=== PATIENT | male | born 1990 | race African-American/Black ===

== ENCOUNTER 2016-04-14 02:33 | Emergency (ER) | payer OTHER ==
[2016-04-14] MEDS ORDERED: ZOFRAN ONE (03:07)
[2016-04-14] MEDS ORDERED: TORADOL ONE (03:07)
[2016-04-14] MEDS ORDERED: NACL 0.9% 1000 ML 1,000 ML ONE (03:08)
[2016-04-14] MEDS ORDERED: ZOFRAN IV ONE (03:13)
[2016-04-14] MEDS ORDERED: NACL 0.9% 1000 ML 1,000 ML IV ONE (03:13)
[2016-04-14] MEDS ORDERED: TORADOL IV ONE (03:13)
[2016-04-14 07:39] LABS: Bilirubin,Urine NEG (Negative); Blood,Urine MOD (Negative); Ketones,Urine NEG (Negative); Leukocyte Esterase,Urine NEG (Negative); Mucus,Urine FEW /HPF; Nitrite,Urine NEG (Negative); Protein,Urine <15 mg/dL mg/dL (Negative); Urobilinogen,Urine < 2.0 mg/dL (<2.0)
--- NOTE | 2016-04-14 07:43 | Emergency Department Report ---
ED Abdominal Pain HPI - General Chief Complaint: Abdominal Pain Stated Complaint: LOWER LF BACK PAIN POSS KIDNEY STONE Time Seen by Provider: 04/14/16 07:33 Source: patient, family Mode of arrival: Ambulatory Limitations: No Limitations - History of Present Illness Initial Comments: PT c/o L flank pain, onset last night. + nausea. no vomiting, no hematuria, but family hx of kidney stone. Complaint: flank pain -: Sudden Time: 23:00 Location: L flank Severity scale (0 -10): 10 Quality: sharp Consistency: now resolved Improves With: other (medication ordered while in department) Context: other (family hx of [place] ) Associated Symptoms: nausea. denies: vomiting, fever, hematuria - Related Data Previous Rx's Medication Instructions Recorded Last Taken Type HYDROcodone/APAP 5-325 [[place] 1 each PO Q6HR PRN #10 tablet 04/14/16 Unknown Rx 5/325] Ondansetron [Zofran Odt] 4 mg PO Q8HR PRN #10 tab.rapdis 04/14/16 Unknown Rx Tamsulosin [Flomax] 0.4 mg PO QDAY #5 cap 04/14/16 Unknown Rx Allergies Allergy/AdvReac Type Severity Reaction Status Date / Time No Known Allergies Allergy Verified 04/14/16 03:05 ED Review of Systems ROS: Stated complaint: LOWER LF BACK PAIN POSS KIDNEY STONE Other details as noted in HPI Comment: All other systems reviewed and negative Constitutional: see HPI Gastrointestinal: as per HPI, nausea, other (L flank pain ) Musculoskeletal: back pain ED Past Medical Hx - Past Medical History Previous Medical History?: No - Surgical History Past Surgical History?: No - Family History Family history: other (father and brother with kidney stone ) - Medications Home Medications: Home Medications Medication Instructions Recorded Confirmed Last Taken Type HYDROcodone/APAP 5-325 [[place] 1 each PO Q6HR PRN #10 tablet 04/14/16 Unknown Rx 5/325] Ondansetron [Zofran Odt] 4 mg PO Q8HR PRN #10 tab.rapdis 04/14/16 Unknown Rx Tamsulosin [Flomax] 0.4 mg PO QDAY #5 cap 04/14/16 Unknown Rx ED Physical Exam - General Limitations: No Limitations General appearance: alert - Head Head exam: Present: atraumatic, normocephalic - Eye Eye exam: Present: normal appearance - ENT ENT exam: Present: normal exam - Neck Neck exam: Present: normal inspection, full ROM - Respiratory Respiratory exam: Present: normal lung sounds bilaterally. Absent: respiratory distress, chest wall tenderness, accessory muscle use - Cardiovascular Cardiovascular Exam: Present: regular rate, normal rhythm, normal heart sounds - GI/Abdominal GI/Abdominal exam: Present: soft, tenderness, normal bowel sounds, other (LLQ abd tenderness) - Expanded GI/Abdominal Exam Expanded GI/Abdominal exam: Absent: Sepulveda's sign, tenderness at Mcburney's Point - Rectal Rectal exam: Present: deferred - Extremities Exam Extremities exam: Present: normal inspection, full ROM - Back Exam Back exam: Present: normal inspection, paraspinal tenderness, other (tenderness to L lumbar back ). Absent: tenderness, CVA tenderness (L) - Neurological Exam Neurological exam: Present: alert, oriented X3 - Skin Skin exam: Present: warm, dry, intact, normal color ED Course Vital Signs 04/14/16 04/14/16 04/14/16 03:03 03:20 11:01 Temperature 98 F Pulse Rate 101 H 78 Respiratory 22 22 20 Rate Blood Pressure 137/86 Blood Pressure 125/74 [Left] O2 Sat by Pulse 99 96 Oximetry - Reevaluation(s) Reevaluation #1: 04/14/16 07:42 PT much improved sp 1L NS bolus, Zofran, and Toradol. Will abd tenderness on exam, will check labs. PT aware of plan of care. Reevaluation #2: 04/14/16 08:29 PT resting on stretcher, no signs of acute distress. PT aware CT has been ordered. Reevaluation #3: 04/14/16 10:[address] results. PT wanting DC home. PT instructed to follow up with Urology. PT aware he will need to be careful when he changes positions due to being prescribed flomax and the potential for orthostatic hypotension - Pulse Oximetry Interpretation Digit-Finger Initial Pulse Oximetry Readin Actions Taken: none ED Medical Decision Making - Lab Data Result diagrams: 04/14/16 07:44 04/14/16 07:44 - Radiology Data Radiology results: report reviewed 3mm stone, mild hydronephrosis - Medical Decision Making PT feeling better sp Toradol/ zofran/ fluids. pt aware of ct results. pt remains stable. PT's vs improve sp pain controlled - Differential Diagnosis renal colic, diverticulitis, back strain Critical care attestation.: If time is entered above; I have spent that time in minutes in the direct care of this critically ill patient, excluding procedure time. ED Disposition Clinical Impression: Left ureteral calculus Disposition: DISCHARGED TO HOME OR SELFCARE Is pt being admited?: No Does the pt Need Aspirin: No Condition: Stable Instructions: Kidney Stones (ED), Renal Colic (ED), How to Strain Your Urine ( ED) Additional Instructions: Strain your Urine No driving or ETOH with [place] Follow up with a Urologist in 2-3 days Return to ed if worsening or concerns Prescriptions: HYDROcodone/APAP 5-325 [[place] 5/325] 1 each PO Q6HR PRN #10 tablet PRN Reason: Pain Ondansetron [Zofran Odt] 4 mg PO Q8HR PRN #10 tab.rapdis PRN Reason: Nausea Tamsulosin [Flomax] 0.4 mg PO QDAY #5 cap Referrals: PRIMARY CARE, [Primary Care Provider] - 3-5 Days NIKKI TYSON MD [Staff Physician] - 3-5 Days Time of Disposition: 10:46
[2016-04-14 07:56] LABS: Hematocrit 42.1 % (35.5-45.6); Hemoglobin 14.2 gm/dl (11.8-15.2); Mean Corpuscular HGB Conc 34 % (32-34); Mean Corpuscular Hemoglobin 30 pg (28-32); Mean Corpuscular Volume 88 fl (84-94); Platelet Count 253 K/mm3 (140-440); Red Blood Count 4.81 M/mm3 (3.65-5.03); Red Cell Distribution Width 12.2 % (13.2-15.2); White Blood Count 15.9 K/mm3 (4.5-11.0)
[2016-04-14 08:16] LABS: Alanine Aminotransferase 33 units/L (7-56); Albumin 4.2 g/dL (3.9-5); Albumin/Globulin Ratio 1.4 %; Alkaline Phosphatase 66 units/L (35-129); Anion Gap 16 mmol/L; BUN/Creatinine Ratio 18.75; Bilirubin,Total 0.5 mg/dL (0.1-1.2); Blood Urea Nitrogen 15 mg/dL (9-20); Calcium 8.6 mg/dL (8.4-10.2); Carbon Dioxide 24 mmol/L (22-30); Chloride 100.4 mmol/L (98-107); Glucose 124 mg/dL (75-100); Lipase 20 units/L (13-60); Potassium 4.3 mmol/L (3.6-5.0); Sodium 136 mmol/L (137-145); Total Protein 7.2 g/dL (6.3-8.2)
[2016-04-14 08:43] LABS: Basophils % (Manual) 0 % (0.0-1.8); Blastocytes % (Manual) 0 %; Eosinophils % (Manual) 0 % (0.0-4.3)
[2016-04-14 08:44] LABS: Diff Status Complete; RBC Morphology Normal
--- NOTE | 2016-04-14 09:13 | Cat Scan Report ---
CT OF THE ABDOMEN AND PELVIS WITHOUT CONTRAST HISTORY: Left flank pain, hematuria. TECHNIQUE: Helical CT without contrast. Sagittal and coronal reformatted images. FINDINGS: A 3 mm calculus is identified in the mid left ureter. There may be a second punctate calculus in the distal left ureter measuring 1 mm. Mild left hydronephrosis. The kidneys, right collecting system and bladder are unremarkable. Normal prostate gland. Within the limits of a noncontrast exam, the abdominal and pelvic viscera are within normal limits. The liver, biliary system, pancreas, spleen, and adrenal glands are unremarkable. The bowel loops are normal caliber and wall thickness. Normal appendix. The aorta is normal caliber. No ascites, bulky adenopathy or inflammatory changes. The lung bases are clear. Normal heart size. No suspicious bony lesion. IMPRESSION: Left ureteral calculus, mild left hydronephrosis. See above.
[2016-04-14 11:03] VITALS: BP 125/74
== END 2016-04-14 11:01 | disposition home or self-care (01) ==
LOC: ED 02:33
DX: N20.1 Calculus of ureter (principal)
CPT/HCPCS: 36415; 74176; 80053; 81001; 83690; 85007; 85025; 96361; 96374; 96375; 99284; J1885; J2405; J7030